=== PATIENT | male | born 1955 | race Caucasian/White ===

== ENCOUNTER → 2016-10-02 | Outpatient (CLI) | payer OTHER | END | disposition home or self-care (01) | LOC: GMAB 14:31 | PROVIDERS: ATTEND Family Medicine | DX: D69.6 Thrombocytopenia, unspecified (principal); E11.22 Type 2 diabetes mellitus with diabetic chronic kidney disease ==

== ENCOUNTER → 2017-07-28 | Outpatient (CLI) | payer OTHER | END | disposition home or self-care (01) | LOC: GMAB 14:43 | PROVIDERS: ATTEND Family Medicine | DX: R06.02 Shortness of breath (principal) ==

== ENCOUNTER → 2017-10-28 | Outpatient (CLI) | payer OTHER | LOC: GMAB 11:29 | PROVIDERS: ATTEND Family Medicine | DX: R06.02 Shortness of breath (principal); D50.8 Other iron deficiency anemias; N18.4 Chronic kidney disease, stage 4 (severe) ==

== ENCOUNTER 2017-12-04 05:59 | Day surgery (SDC) | payer OTHER ==
[2017-12-04] MEDS ORDERED: ALBUMIN 100 ML IVPB ONE (08:54)
[2017-12-04 09:35] VITALS: BP 111/69; TEMP 98.3; O2SAT 98
--- NOTE | 2017-12-05 08:59 | US ---
EXAM DESCRIPTION: Biopsy/Needle Guidance: ULTRASOUND. CLINICAL HISTORY: PLACE MARKING FOR PARACENTESIS COMPARISON: None Available. TECHNIQUE: Transcutaneous scanning: Two-dimensional and Doppler modes. 4 quadrants of the abdomen. FINDINGS: Scanning of the 4 quadrants of the abdomen show no fluid collection. Therefore no site was marked for paracentesis. IMPRESSION: No ascites in the abdomen. No paracentesis to be performed. Electronically signed by: Tod Daniels MD 12/05/2017 8:58 AM CDT
== END 2017-12-04 10:30 | disposition home or self-care (01) ==
LOC: AMB 05:59
PROVIDERS: ATTEND Surgery
DX: R18.8 Other ascites (principal); E11.22 Type 2 diabetes mellitus with diabetic chronic kidney disease; I12.9 Hypertensive chronic kidney disease with stage 1 through stage 4 chronic kidney disease, or unspecified chronic kidney disease; I48.91 Unspecified atrial fibrillation; M10.9 Gout, unspecified; E88.81 Metabolic syndrome and other insulin resistance; F32.9 Major depressive disorder, single episode, unspecified; F17.210 Nicotine dependence, cigarettes, uncomplicated; N18.9 Chronic kidney disease, unspecified; Z79.01 Long term (current) use of anticoagulants

== ENCOUNTER → 2018-11-02 | Outpatient (CLI) | payer BC, OTHER | LOC: GMAE 10:48 | PROVIDERS: ATTEND Family Medicine | DX: Z00.00 Encounter for general adult medical examination without abnormal findings (principal); N18.4 Chronic kidney disease, stage 4 (severe) ==

== ENCOUNTER → 2018-11-09 | Outpatient (CLI) | payer BC ==
--- NOTE | 2018-11-09 16:41 | US ---
EXAM DESCRIPTION: Aorta CLINICAL HISTORY: 63 years Male, SCREENING FOR AAA COMPARISON: None. FINDINGS: Courtney scale images of the abdominal aorta are evaluated. Proximal aorta measures 2.6 x 2.3 cm and the mid abdominal aorta measures 2 x 2.1 cm. The distal abdominal aorta is not well seen due to overlying bowel gas but no aneurysm is depicted on the submitted images. Common iliac arteries are not well seen due to overlying bowel gas. IMPRESSION: Negative for evidence of abdominal aortic aneurysm. Electronically signed by: Elia Mcknight MD 11/09/2018 4:39 PM CDT
== END ==
LOC: US 13:56
PROVIDERS: ATTEND Family Medicine
DX: Z13.89 Encounter for screening for other disorder (principal)

== ENCOUNTER → 2018-12-08 | Outpatient (CLI) | payer BC, OTHER ==
--- NOTE | 2018-12-09 09:46 | CT ---
Study: Screening CT Chest. Indication: HX OF TOBACCO USE Technique: Low-dose screening CT imaging of the chest obtained without intravenous administration of contrast. This exam was performed according to our departmental dose-optimization program, which includes automated exposure control, adjustment of the mA and/or kV according to patient size and/or use of iterative reconstruction technique. Comparison: None. Findings: Please note that low-dose CT screening technique was performed without intravenous contrast. This makes evaluation of the mediastinum, osseous structures, and upper abdomen limited. Atherosclerosis great vessels and coronary arteries. Cardiomegaly. Calcified gallstone suspected in the gallbladder but difficult to characterize as only partially visualized. Mild splenomegaly. Degenerative changes of the spine noted. Numerous scattered calcified granulomas throughout the lungs. No consolidation, pleural effusion, or pneumothorax. No pulmonary mass. Impression: Numerous scattered calcific granulomas throughout the lungs without pulmonary mass. Atherosclerosis. Suspected cholelithiasis. Cardiomegaly. Electronically signed by: Giles Adams MD 12/09/2018 9:44 AM CDT
== END ==
LOC: CT 13:00
PROVIDERS: ATTEND Family Medicine
DX: Z87.891 Personal history of nicotine dependence (principal); J84.10 Pulmonary fibrosis, unspecified; I70.90 Unspecified atherosclerosis; I51.7 Cardiomegaly

== ENCOUNTER → 2019-02-22 | Outpatient (CLI) | payer BC | LOC: GMAE 15:17 | PROVIDERS: ATTEND Family Medicine | DX: D50.8 Other iron deficiency anemias (principal); N18.4 Chronic kidney disease, stage 4 (severe) ==

== ENCOUNTER → 2020-07-12 | Outpatient (CLI) | payer MEDICARE | LOC: GMAE 14:09 | PROVIDERS: ATTEND Family Medicine | DX: D63.1 Anemia in chronic kidney disease (principal); I10 Essential (primary) hypertension; E11.22 Type 2 diabetes mellitus with diabetic chronic kidney disease; N18.4 Chronic kidney disease, stage 4 (severe); M10.9 Gout, unspecified ==